=== PATIENT | female | born 1940 | race Caucasian/White ===

== ENCOUNTER 2023-06-05 21:09 | Emergency (ER) | payer MEDICARE ==
[~2023-06-05] VITALS: Ht 152.4 cm; Wt 56.7 kg
[2023-06-05] MEDS ORDERED: CARDIZEM CD120 M2 PO (21:27)
[2023-06-05] MEDS ORDERED: Coumadin5 MG PO (21:27)
[2023-06-05] MEDS ORDERED: SERTRALINE HYDR25 MG PO (21:28)
[2023-06-06] MEDS ORDERED: OMNICEF300 MG PO (00:25)
== END 2023-06-06 00:32 | disposition home or self-care (01) ==
LOC: ED 21:09
DX: S51.812A Laceration without foreign body of left forearm, initial encounter (principal); S41.111A Laceration without foreign body of right upper arm, initial encounter; S81.812A Laceration without foreign body, left lower leg, initial encounter; S81.011A Laceration without foreign body, right knee, initial encounter; Z79.899 Other long term (current) drug therapy; Z79.01 Long term (current) use of anticoagulants; W18.2XXA Fall in (into) shower or empty bathtub, initial encounter; Y93.89 Activity, other specified; Y92.091 Bathroom in other non-institutional residence as the place of occurrence of the external cause; Y99.8 Other external cause status